=== PATIENT | female | born 1950 | race Two or more races ===

== ENCOUNTER → 2019-10-04 | Outpatient (BNV) | payer MEDICARE, MEDICAID, SELFPAY ==
--- NOTE | 2019-10-04 10:36 | CWCCLINC_ITS ---
Vital Signs 10/04/19 10:00 Weight 68.946 kg Weight Measurement Method Stated by Patient OP Nutritional Services [facility] Follow up call Follow up call date: 10/04/19 Follow-up call Summary: Nutrition counseling follow up for diabetes management provided to Jenny Newman with a phone call. Jenny reports have been doing better and doctor is happy with her progress in recent appointment on 09/14/19. She states she was told the A1C has improved to 6?s and her daily fasting blood glucose level has been around 120-125 mg/dl. She reports her current weight is about 152 lbs. She checks her BS once a day and mostly around 120 and she noticed tamale would increase her BS to 130 mg/dl and she try to avoid it. Reviewed previous goals set by her and she reports she has been achieving all her goals. She does not eat much bread or tortilla and she is not eating sweets. She is familiar with label reading and practicing it often. She is not using salt in cooking and she is using [employer] as it was also recommended by her doctor. She tries not to eat anything after 4:30 pm daily, she will snacks on nuts if she feels hungry. Jenny does not feels the needs to attend Diabetes education class as she is able to follow the guide in booklet provided and reviewed in the initial nutrition counseling session. Jenny continues doing her physical activities in cleaning house, taking care grandkids. Jenny has no additional question and will continue to follow the diabetic guide provided. RD will be available for additional nutrition education/counseling per MD or Patient?s request as needed. *[facility] Office Visit complete [facility] Offive Visit Complete [facility] Visit Complete?: Yes
== END | disposition home or self-care (01) ==